=== PATIENT | female | born 1990 | race Caucasian/White ===

== ENCOUNTER → 2018-03-15 08:20 | Outpatient (CLI) | payer OTHER, SELFPAY ==
[2018-03-15 11:08] LABS: Hemoglobin 9.9 g/dL (12.0-16.0); Mean Corpuscular HGB Conc 34.3 % (30-36); Mean Corpuscular Hemoglobin 29.6 PG (26-34); Mean Corpuscular Volume 86.5 fL (80-100); Platelet Count 253 X10^3/uL (150-400); Red Blood Cell Count 3.35 X10^6/uL (4.0-5.2); Red Cell Distribution Width 12.8 % (11.6-14.8); White Blood Cell Count 8.9 X10^3/uL (4.5-11.0)
[2018-03-15 11:32] LABS: GTT (PREG) 1 Hour PP 50gm Dose 113 mg/dL (76-139)
== END ==
PROVIDERS: PCP Family Medicine; Visit Provider Family Medicine
DX: Z34.93 Encounter for supervision of normal pregnancy, unspecified, third trimester (principal); Z3A.28 28 weeks gestation of pregnancy
CPT/HCPCS: 36415; 82950; 85027

== ENCOUNTER → 2018-04-24 15:17 | Outpatient (CLI) | payer OTHER, SELFPAY ==
--- NOTE | 2018-04-24 16:43 | DI.US.S_ITS ---
PROCEDURE: US OB LIMITED INDICATIONS: growth OUTSIDE/PRIOR DATING DATA: Last menstrual period (LMP): 08/27/17. LMP-based estimated date of delivery (DIANE): 06/03/18. First dating scan (date and location): 10/29/17. Estimated date of delivery (DIANE) from first dating scan: 06/02/18. TECHNIQUE: Real-time scanning was performed of the fetus, with image documentation. Endovaginal scanning: Not needed for this study COMPARISON: None. FINDINGS: A single living intrauterine gestation is present. Presentation: Vertex. Placenta: Placental position is posterior, without previa. Amniotic fluid index: 17.0 cm, normal range is 5-24 cm. heart rate: 149 beats per minute. Estimated gestational age from initial scan: 34 weeks 3 days. biometry is internally consistent with a current gestational age estimate of 36 weeks 6 days. This correlates with a estimated current weight of 3217 g, at the upper 99th percentile (macrosomia). BPD 8.9 cm, 36 weeks 0 days. Head circumference 32.6 cm, 37 weeks 0 days. Abdominal circumference 34.8 cm, 38 weeks 5 days Femur length 6.9 cm, 35 weeks 3 days. IMPRESSION: The current estimated weight places the gestation in the category of macrosomia with the estimated current gestational weight at the upper 99th percentile. No anomaly was observed, normal amniotic fluid volume. 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 Dictated by: Edward Stephenson M.D. on 04/24/2018 at 17:09 Approved by: Edward Stephenson M.D. on 04/24/2018 at 17:13
== END ==
PROVIDERS: PCP Family Medicine; Visit Provider Family Medicine
DX: O36.63X0 Maternal care for excessive fetal growth, third trimester, not applicable or unspecified (principal); Z3A.34 34 weeks gestation of pregnancy
CPT/HCPCS: 76815

== ENCOUNTER → 2018-04-30 13:58 | Outpatient (CLI) | payer OTHER, SELFPAY ==
[2018-05-01 15:27] LABS: Strep Grp B PCR NEG for Grp B Strep
== END ==
PROVIDERS: PCP Family Medicine; Visit Provider Family Medicine
DX: Z3A.35 35 weeks gestation of pregnancy (principal)
CPT/HCPCS: 87653

== ENCOUNTER → 2018-05-22 14:40 | Outpatient (CLI) | payer OTHER, SELFPAY ==
--- NOTE | 2018-05-22 14:43 | DI.US.S_ITS ---
PROCEDURE: US OB LIMITED INDICATIONS: SIZE GREATER THAN DATES OUTSIDE/PRIOR DATING DATA: Last menstrual period (LMP): 08/27/2017. LMP-based estimated date of delivery (DIANE): 06/03/2018. First dating scan (date and location): 10/29/2017. Estimated date of delivery (DIANE) from first dating scan: 06/02/2018. TECHNIQUE: Real-time scanning was performed of the fetus, with image documentation. Endovaginal scanning: Not required COMPARISON: [facility], OB LIMITED, 04/24/2018, 15:27. FINDINGS: A single living intrauterine gestation is present. Presentation: Vertex. Placenta: Placental position is posterior, without previa. Amniotic fluid index: 18.4 cm, normal range is 5-24 cm. heart rate: 120 beats per minute. Maternal cervical canal: Not measured Estimated gestational age from initial scan: 38 weeks 3 days Estimated gestational age from current exam 38 weeks 6 days, normal growth Biometry: BPD 37 weeks 6 days HC 38 weeks 5 days A.c. 39 weeks one day [place] 39 weeks 5 days Estimated weight : 3678 g at the 80th percentile . IMPRESSION: Single, live intrauterine gestation at 38 weeks 6 days, normal growth. Normal time of amniotic fluid. Dictated by: Pancho Dumont M.D. on 05/22/2018 at 15:32 Approved by: Pancho Dumont M.D. on 05/22/2018 at 15:38
== END ==
PROVIDERS: PCP Family Medicine; Visit Provider Family Medicine
DX: O26.843 Uterine size-date discrepancy, third trimester (principal); O36.63X0 Maternal care for excessive fetal growth, third trimester, not applicable or unspecified; Z3A.38 38 weeks gestation of pregnancy
CPT/HCPCS: 76815

== ENCOUNTER → 2018-05-27 09:32 | Outpatient (CLI) | payer OTHER, SELFPAY ==
--- NOTE | 2018-05-27 15:29 | PM.OBTRLD ---
Visit Information Visit Information Date of evaluation: 05/27/18 Primary OB Provider: Rocio Anderson Reason for Evaluation: Yes rule out labor [facility] Medical History History of wisdom tooth extraction (Acute) Surgical History History of third molar tooth extraction Social History marital status: number of children: 1 household members: spouse and children Smoking Status: Never smoker alcohol intake: never substance use type: does not use Evaluation Evaluation Baseline heart rate: 130 Variability: Moderate (11-25) monitor accelerations: Present monitor decelerations: Absent Category of Tracing: I Cervical dilation (cm): 3 Cervical effacement (%): 50 station: -3 Diagnosis, Plan/Disposition Final Diagnosis (1) 39 weeks gestation of : Current Visit: No Status: Acute Plan/Disposition Plan: 27 year old at 39 weeks. Here with cramping, not in labor. FHT reactive. Scheduled for induction tomorrow for suspected macrosomia and h/o shoulder dystocia in first .
--- NOTE | 2018-05-27 15:35 | P.TNLD_ITS ---
Visit Information Visit Information Date of evaluation: 05/27/18 Primary OB Provider: Rocio Anderson Reason for Evaluation: Yes rule out labor [facility] Medical History History of wisdom tooth extraction (Acute) Surgical History History of third molar tooth extraction Social History marital status: number of children: 1 household members: spouse and children Smoking Status: Never smoker alcohol intake: never substance use type: does not use Evaluation Evaluation Baseline heart rate: 130 Variability: Moderate (11-25) monitor accelerations: Present monitor decelerations: Absent Category of Tracing: I Cervical dilation (cm): 3 Cervical effacement (%): 50 station: -3 Diagnosis, Plan/Disposition Final Diagnosis (1) 39 weeks gestation of : Current Visit: No Status: Acute Plan/Disposition Plan: 27 year old at 39 weeks. Here with cramping, not in labor. FHT reactive. Scheduled for induction tomorrow for suspected macrosomia and h/o shoulder dystocia in first .
== END | disposition home or self-care (01) ==
LOC: LABOR 09:35 → OB 05-29 12:55
PROVIDERS: PCP Family Medicine; Visit Provider Family Medicine
DX: O46.93 Antepartum hemorrhage, unspecified, third trimester (principal); Z3A.39 39 weeks gestation of pregnancy
CPT/HCPCS: 59025; G0378; G0379

== ENCOUNTER 2018-05-28 13:51 | Outpatient (CLI) | payer OTHER, SELFPAY ==
--- NOTE | 2018-05-28 14:32 | PM.OBTRLD ---
Visit Information Visit Information Date of evaluation: 05/28/18 Primary OB Provider: oRcio Anderson Reason for Evaluation: Yes non-stress test non-stress test reason: decreased movement [facility] Medical History History of wisdom tooth extraction (Acute) Surgical History History of third molar tooth extraction Social History marital status: number of children: 1 household members: spouse and children Smoking Status: Never smoker alcohol intake: never substance use type: does not use Evaluation Evaluation Baseline heart rate: 120 Variability: Moderate (11-25) monitor accelerations: Present monitor decelerations: Absent Contraction Frequency (minutes): 2 Uterine Contraction Intensity: Mild Category of Tracing: I Diagnosis, Plan/Disposition Final Diagnosis (1) 39 weeks gestation of : Current Visit: No Status: Acute Plan/Disposition Plan: Decreased movement today. Reactive NST. Patient laith regularly but does not feel them, cervix unchanged from yesterday. Plan for pitocin induction tomorrow as scheduled.
== END 2018-05-28 14:40 | disposition home or self-care (01) ==
LOC: LABOR 14:06 → OB 05-29 13:05
PROVIDERS: PCP Family Medicine; Visit Provider Family Medicine
DX: Z34.93 Encounter for supervision of normal pregnancy, unspecified, third trimester (principal)
CPT/HCPCS: 59025; G0378; G0379

== ENCOUNTER 2018-05-28 17:35 | Inpatient (IN) | payer OTHER, SELFPAY ==
--- NOTE | 2018-05-28 18:06 | P.HPOB_ITS ---
OB HPI Date/Time Date of admission: 05/28/18 Date Patient Seen: 05/28/18 Time Patient Seen: 18:05 History of Present Illness Chief complaint: OBSERVATION : 2 Para: 1 Estimated Date of Delivery: 06/03/18 Estimated Gestational Age (weeks): 39w1d Narrative: Jaimee Espinosa is a 27 year old at 39w1d in active labor. Painful contractions began at 4:40 pm today. Patient received regular care. 20 wk US showed EFW of 90%. Follow up US at 34 wks also showed EFW at 99% . Discussions were had during regarding primary for macrosomia however patient was very reluctant. US at 38 weeks showed EFW at 80% so the decision was made to allow a trial of labor. History of Present care: good care Dating criteria: LMP confirmed by 1st trimester US Ultrasounds: abnormal US findings Abnormal ultrasound findings: Normal anatomy however EFW at 99% on 20 wk and 34 wk ultrasounds. EFW 80% on 38 week US. Obstetrical complications: none Medical complications: none Preadmission Labs Blood type: AB (+) positive -: Antibody screen: negative, GBS status: negative, HBsAG: negative, HIV: negative, HSV 1: negative, HSV 2: negative and RPR/VDLR: negative -: Chlamydia screen: not detected and Gonorrhea screen: not detected -: Rubella: immune and Varicella: immune HCT: 36.3 HCAB: negative PAP: Normal Urine: Treated for UTIx2 this 1 hr GTT: 113 Prior (ies) History: 09/01/14 at 39 weeks, episiotomy done for brief shoulder dystocia, 8#7oz male, no epidural Evaluation Evaluation Baseline heart rate: 120 Variability: Moderate (11-25) monitor accelerations: Present monitor decelerations: Absent Contraction Frequency (minutes): 2 Uterine Contraction Intensity: Strong/Firm Category of Tracing: I Cervical dilation (cm): 7 Cervical effacement (%): 90 station: -3 [facility] Medical History History of wisdom tooth extraction (Acute) Surgical History History of third molar tooth extraction Social History marital status: number of children: 1 household members: spouse and children Smoking Status: Never smoker alcohol intake: never substance use type: does not use Meds Home Medications Medication Instructions Recorded Confirmed Type breast pump #1 each 05/07/18 Rx Review of Systems Review of Systems All systems reviewed & are unremarkable except as noted in HPI and below Exam Const General: healthy appearing Nutritional Appearance: average body habitus HENMT Head: normal to inspection Ears: hearing grossly normal bilaterally Nose: external nose normal Face and sinus: normal facial exam Mouth: oral mucosae normal Eyes General: appearance normal, both eyes and all related structures Alignment and Position: alignment normal Eyelids: eyelids normal Neck Neck: normal visual inspection Resp Effort & Inspection: normal respiratory effort and able to speak in complete sentences Cardio Rate: regular rate Rhythm: regular rhythm Estimated Weight (lbs): 9 Extrem General: normal to inspection and no pedal edema Assessment and Plan (1) 39 weeks gestation of : Current visit: No Status: Acute Plan: Plan: 27 year old at 39w2d in active labor. GBS negative. Concerned for macrosomia during , most recent US showed EFW at 80%. Also with a h/o brief shoulder dystocia with first delivery. Plan - Expectant management - Patient desires unmedicated labor - Will prepare for possible shoulder dystocia and/or hemorrhage due to suspected macrosomia
[2018-05-28 20:19] LABS: Hematocrit 30.6 % (36-46); Hemoglobin 9.7 g/dL (12.0-16.0); Mean Corpuscular Hemoglobin 24.4 PG (26-34); Mean Corpuscular Volume 76.9 fL (80-100); Red Blood Cell Count 3.98 X10^6/uL (4.0-5.2); White Blood Cell Count 14.3 X10^3/uL (4.5-11.0)
[2018-05-28 20:20] LABS: Add Manual Diff / Slide Review NO; Basophils Percent Auto 0.2 % (0-2); Eosinophils Percent Auto 0.2 % (2-4); Lymphocytes Percent Auto 13.7 % (25-40); Mean Corpuscular HGB Conc 31.7 % (30-36); Neutrophils Percent Auto 79.9 % (50-75); Platelet Count 397 X10^3/uL (150-400); Red Cell Distribution Width 14.8 % (11.6-14.8)
[2018-05-28 20:21] LABS: Neutrophils Absolute Auto 11426 /uL (3000-5900)
--- NOTE | 2018-05-28 20:33 | PM.OBPRVD ---
Delivery date: 05/28/18 Intrapartal events: None Induction method: none Delivery augmentation: rupture of membranes Delivery monitor: external FHT Route of delivery: Laceration description: None Estimated blood loss (mL): 350 Anesthesia type: None Narrative: Patient is a 27-year-old now 2 at 39w1d weeks who gave on 05/28/18 at 20:07. DIANE: 06/03/18 Hospital problems: 39 weeks of Spontaneous vaginal delivery STAGE I: Labor Labor onset: 16:40. Augmentation: AROM with bloody fluid at 18:39. Complete dilation: 19:17. Stage I duration: 3 hours 37 minutes. FHT category 1 throughout stage 1. STAGE II: Delivery Stage II duration: 50 minutes Spontaneous vaginal delivery occurred at 20:07 on 05/28/18. Presentation was ZENIA with a nuchal cord x1 which was reduced. The head and anterior shoulder delivered easily followed by the rest of the body with some difficulty within a minute of the head. A vigorous male baby was born. scores were 8 at one minute and 8 at five minutes. STAGE III: Placenta/Cord The third stage of labor lasted 9 minutes. Placenta delivered after active management with a three vessel cord and intact. No lacerations. EBL: 350 mL. Needle and sponge counts were correct. The vagina was inspected and no items were left in situ. Patient was doing well with Ortega, her and at bedside.
[2018-05-28 21:45] VITALS: BP 102/59
[2018-05-28] MEDS: LANOLIN OINT 7 GM 1 APPLIC TOP (22:24)
[2018-05-28] MEDS: IBUPROFEN 600 MG TABLET PO (22:24)
[2018-05-28] MEDS: DERMOPLAST SPRAY 20% 60 ML 1 SPRAY TOP (22:24)
[2018-05-29] MEDS: PRENATAL VIT,CALC/IRON/FOLIC 1 TABLET 1 TAB PO (09:36)
[2018-05-29] MEDS: DOCUSATE 250 MG CAPSULE PO (09:37)
--- NOTE | 2018-05-29 14:18 | PM.OBDS.1 ---
Discharge Providers Date of admission: 05/28/18 17:35 Primary care physician: Rocio Anderson DO Consults: 05/28/18 21:44 Consult to Production Stage Manager Routine Comment: Discharge provider: Rocio Anderson DO Summary Date Patient Seen: 05/29/18 Time Patient Seen: 13:30 Hospital Course: 27 year old now 2 s/p on 05/28/18. Patient present in active labor and delivered a healthy 9 lb 4 oz male without analgesia. No lacerations at delivery. course was uncomplicated. Breast feeding was going well at the time of discharge. Pain controlled with ibuprofen. Bleeding reportedly similar to a period. No difficulty with eating or ambulation. Patient was eager to return home with her . Counseled patient to call for fevers, severe pain, bleeding through more than a pad an hour. Follow up in clinic for 6 week check. Exam Temperature 98.4 BP 122/83 Pulse 77 General: Awake and alert, no acute distress. HEENT: NCAT, EOMI, moist oral mucosa CV: Regular rate and rhythm, no murmurs, rubs or gallops Lungs: CTAB, no wheezes, rales, or rhonchi Abdomen: Soft, nontender; bowel tones active; uterus firm 1 cm below umbilicus Extremities: Warm, no edema, 2+ pedal pulses bilaterally Peripartum Data Delivery Method: Natural Vaginal Laceration description: None Procedures: Spontaneous vaginal delivery complications: none Discharge Diagnosis (1) 39 weeks gestation of : Status: Acute (2) (spontaneous vaginal delivery): Status: Acute Status at Discharge Functional status at discharge: independent ambulation Overall status at discharge: patient is back to baseline Time Spent with Patient Total time spent providing and/or coordinating discharge services: Less than 30 minutes Objective Labs Result Diagrams: 05/28/18 Unknown Labs: Laboratory Results - last 24 hr 05/28/18 05/28/18 Unknown Unknown WBC 14.3 H RBC 3.98 L Hgb 9.7 L Hct 30.6 L MCV 76.9 L MCH 24.4 L MCHC 31.7 RDW 14.8 Plt Count 397 Neut % (Auto) 79.9 H Lymph % (Auto) 13.7 L [place] % (Auto) 6.0 Eos % (Auto) 0.2 L Baso % (Auto) 0.2 Neut # (Auto) 21351 H Blood Type AB Positive Antibody Screen Negative Discharge Plan Discharge Plan Patient Disposition: Home Discharge Med Rec/Prescriptions Prescriptions: New ibuprofen 600 mg Tablet 600 mg PO Q6HR PRN (Reason: Pain, Mild (1-3)) Qty: 30 RF: 0 docusate sodium 250 mg Capsule 250 mg PO DAILY Qty: 30 RF: 0 Continue PNV #[id number] [id number] 1 tab PO DAILY RF: 0 No Action breast pump device .ROUTE .MEDSUPPLY Qty: 1 RF: 0 Follow up/Referrals: Rocio Anderson DO [Primary Care Provider] - 6 Weeks (Appointment with Sunday, July at 10:30am) Visit Report/Discharge Packet Instructions: DI for Labor and Delivery, Vaginal Visit Report Forms: Stroke Signs & Symptoms Discharge Data Primary Care Provider: Rocio Anderson Attending Provider: Rocio Anderson Admit Date/Time: 05/28/18 17:35 Discharges patient from system. Discharge Date/Time: 05/29/18 17:40
[2018-05-29 16:40] VITALS: BP 117/77; PULSE 83; RESP 16; TEMP 36.8
--- NOTE | 2018-05-30 11:17 | P.DS_ITS ---
Discharge Providers Date of admission: 05/28/18 17:35 Primary care physician: Rocio Anderson DO Consults: 05/28/18 21:44 Consult to Silviculture Forester Routine Comment: Discharge provider: Rocio Anderson DO Summary Date Patient Seen: 05/29/18 Time Patient Seen: 13:30 Hospital Course: 27 year old now 2 s/p on 05/28/18. Patient present in active labor and delivered a healthy 9 lb 4 oz male without analgesia. No lacerations at delivery. course was uncomplicated. Breast feeding was going well at the time of discharge. Pain controlled with ibuprofen. Bleeding reportedly similar to a period. No difficulty with eating or ambulation. Patient was eager to return home with her . Counseled patient to call for fevers, severe pain, bleeding through more than a pad an hour. Follow up in clinic for 6 week check. Exam Temperature 98.4 BP 122/83 Pulse 77 General: Awake and alert, no acute distress. HEENT: NCAT, EOMI, moist oral mucosa CV: Regular rate and rhythm, no murmurs, rubs or gallops Lungs: CTAB, no wheezes, rales, or rhonchi Abdomen: Soft, nontender; bowel tones active; uterus firm 1 cm below umbilicus Extremities: Warm, no edema, 2+ pedal pulses bilaterally Peripartum Data Delivery Method: Natural Vaginal Laceration description: None Procedures: Spontaneous vaginal delivery complications: none Discharge Diagnosis (1) 39 weeks gestation of : Status: Acute (2) (spontaneous vaginal delivery): Status: Acute Status at Discharge Functional status at discharge: independent ambulation Overall status at discharge: patient is back to baseline Time Spent with Patient Total time spent providing and/or coordinating discharge services: Less than 30 minutes Objective Labs Result Diagrams: 05/28/18 Unknown Labs: Laboratory Results - last 24 hr 05/28/18 05/28/18 Unknown Unknown WBC 14.3 H RBC 3.98 L Hgb 9.7 L Hct 30.6 L MCV 76.9 L MCH 24.4 L MCHC 31.7 RDW 14.8 Plt Count 397 Neut % (Auto) 79.9 H Lymph % (Auto) 13.7 L [place] % (Auto) 6.0 Eos % (Auto) 0.2 L Baso % (Auto) 0.2 Neut # (Auto) 17666 H Blood Type AB Positive Antibody Screen Negative Discharge Plan Discharge Plan Patient Disposition: Home Discharge Med Rec/Prescriptions Prescriptions: New ibuprofen 600 mg Tablet 600 mg PO Q6HR PRN (Reason: Pain, Mild (1-3)) Qty: 30 RF: 0 docusate sodium 250 mg Capsule 250 mg PO DAILY Qty: 30 RF: 0 Continue PNV #[id number] acid-omega3 1 tab PO DAILY RF: 0 No Action breast pump device .ROUTE .MEDSUPPLY Qty: 1 RF: 0 Follow up/Referrals: Rocio Anderson DO [Primary Care Provider] - 6 Weeks (Appointment with Sunday, July at 10:30am) Visit Report/Discharge Packet Instructions: DI for Labor and Delivery, Vaginal Visit Report Forms: Stroke Signs & Symptoms Discharge Data Primary Care Provider: Rocio Anderson Attending Provider: Rocio Anderson Admit Date/Time: 05/28/18 17:35 Discharges patient from system. Discharge Date/Time: 05/29/18 17:40
== END 2018-05-29 17:40 | disposition home or self-care (01) | DRG 775 ==
PROVIDERS: Admitting Provider Family Medicine; PCP Family Medicine; Visit Provider Family Medicine
DX: O36.63X0 Maternal care for excessive fetal growth, third trimester, not applicable or unspecified (principal); Z3A.39 39 weeks gestation of pregnancy; Z37.0 Single live birth
CPT/HCPCS: 59025; 59050; 59410; 85025; 86850; 86900; 86901; G0378; G0379